=== PATIENT | female | born 1990 | race Two or more races ===

== ENCOUNTER 2022-11-14 13:59 | Emergency (ER) | payer OTHER ==
[2022-11-14 14:06] VITALS: BP 124/80; PULSE 77; RESP 20; TEMP 98.2; BMI 29.0
[2022-11-14] MEDS ORDERED: OXYMETAZOLINE 0.05% NASAL SOLUTION 15 ML BOTTLE NS ONE (14:48)
[2022-11-14] MEDS ORDERED: ACETAMINOPHEN 325 MG TABLET (FP) PO ONE (14:49)
[2022-11-14] MEDS ORDERED: IBUPROFEN 400 MG TABLET (FP) PO ONE ×2 (14:49→14:57)
[2022-11-14] MEDS ORDERED: ACETAMINOPHEN 500 MG TABLET (FP) ONE (14:57)
[2022-11-14 16:03] LABS: THROAT:GRP A STREP NOT DETECTED (NOTDETECTED)
== END 2022-11-14 16:21 | disposition home or self-care (01) ==
LOC: JER 13:59 → JERFT 13:59
DX: R07.0 Pain in throat (principal); R50.9 Fever, unspecified; R51.9 Headache, unspecified; R05.9 Cough, unspecified; J34.89 Other specified disorders of nose and nasal sinuses; R59.0 Localized enlarged lymph nodes; J06.9 Acute upper respiratory infection, unspecified; J01.90 Acute sinusitis, unspecified; U07.1 COVID-19
CPT/HCPCS: 0241U-QW; 87651; 99283-25